=== PATIENT | female | born 1975 | race Caucasian/White ===

== ENCOUNTER 2024-04-21 22:14 | Emergency (ER) | payer OTHER ==
[~2024-04-21] VITALS: Ht 167.6 cm; Wt 82.0 kg
[2024-04-21] MEDS ORDERED: HYDROmorphone HCL 1 MG/ML SYR IM ONE (22:30)
[2024-04-21] MEDS ORDERED: HYDROCODON-ACE1 EA10 PO (22:43)
[2024-04-21] MEDS ORDERED: HYDROCODONE BIT/ACETAMINOPHEN 5/325 MG 1 TAB HOME.PACK PO ONE (22:45)
[2024-04-21] MEDS ORDERED: AMOX TR-K CLV1 EAC1 PO (22:46)
[2024-04-21] MEDS ORDERED: AMOXICILLIN/CLAVULANATE K 875 MG HOME.PACK PO ONE (23:00)
[2024-04-21 23:17] VITALS: BP 126/77
== END 2024-04-21 23:11 | disposition home or self-care (01) ==
LOC: ED 22:14
DX: N75.8 Other diseases of Bartholin's gland (principal)
CPT/HCPCS: A9270

== ENCOUNTER 2024-11-16 16:15 | Emergency (ER) | payer OTHER ==
[~2024-11-16] VITALS: Ht 167.6 cm; Wt 88.5 kg
[~2024-11-16 16:15] MED LIST: AMOX TR-K CLV1 EAC1 PO; HYDROCODON-ACE1 EA10 PO
[2024-11-16 16:36] LABS: BILIRUBIN, URINE NEGATIVE (negative); BLOOD/HGB, URINE NEGATIVE (Negative); KETONE, URINE NEGATIVE (Negative); LEUK ESTERASE, URINE NEGATIVE (negative); NITRITE, URINE POSITIVE (negative); PH, URINE 5.5 (5-7)
[2024-11-16 16:43] LABS: CRYSTALS, URINE NONE SEEN (0-1+); EPITHELIAL CELLS, URINE SQUAMOUS 1+ /lpf (0-1+); RED BLOOD CELLS, URINE 0-1 /hpf (0-5)
[2024-11-16 16:44] LABS: BACTERIA, URINE 3+ /hpf (negative); CASTS, URINE NONE SEEN \\lpf; COLLECTION TYPE, URINE CLEAN CATCH; REFLEX CULTURE, URINE Yes (No)
[2024-11-16] MEDS ORDERED: CEFDINIR300 MG PO (17:00)
[2024-11-16] MEDS ORDERED: CEFDINIR 300 MG CAP PO ONE (17:00)
[2024-11-16] MEDS ORDERED: ONDANSETRON 4 MG TAB ODT SL ONE (17:00)
[2024-11-16] MEDS ORDERED: ONDANSETRON ODT8 MG PO (17:00)
[2024-11-16 17:20] VITALS: BP 169/110
== END 2024-11-16 17:20 | disposition home or self-care (01) ==
LOC: ED 16:15
PROVIDERS: Emergency Medicine
DX: N39.0 Urinary tract infection, site not specified (principal); F15.90 Other stimulant use, unspecified, uncomplicated; F12.90 Cannabis use, unspecified, uncomplicated; F10.90 Alcohol use, unspecified, uncomplicated
CPT/HCPCS: 81001; 87088; 99284; A9270